=== PATIENT | male | born 1945 | race Caucasian/White ===

== ENCOUNTER 2019-04-20 12:55 | Emergency (ER) | payer OTHER, MEDICARE ==
[~2019-04-20] VITALS: Ht 182.9 cm; Wt 99.8 kg
[2019-04-20] MEDS ORDERED: LIPITOR10 MG PO (13:19)
[2019-04-20] MEDS ORDERED: LISINOPRIL10 MG PO (13:19)
[2019-04-20] MEDS ORDERED: GLIPIZIDE ER2.5 MG PO (13:20)
[2019-04-20] MEDS ORDERED: XARELTO1 EACH PO (13:21)
[2019-04-20 15:00] LABS: ABSOLUTE NEUTROPHILS 4.6 thou/uL (1.4-8.2); BASOPHILS 0.5 % (0.0-2.0); EOSINOPHILS 1.8 % (0.0-3.0); HEMATOCRIT 44.1 % (42.0-52.0); HEMOGLOBIN 15.1 gm/dL (14.0-18.0); LYMPHOCYTES 32.3 % (24.0-44.0); MCH 31.9 pg (26.0-34.0); MCHC 34.3 g/dL (28.0-37.0); MCV 92.9 fL (80.0-100.0); PLATELET COUNT 282 thou/uL (150-400); POLYS 57.4 % (36.0-66.0); RBC 4.75 mil/uL (4.50-6.00); RDW 13.1 % (10.5-14.5)
[2019-04-20 15:08] LABS: CALCIUM 9.5 mg/dL (8.5-10.1); CREATININE 1.4 mg/dL (0.7-1.3); POTASSIUM 4.2 mmol/L (3.5-5.1)
[2019-04-20] MEDS ORDERED: BACTRIM DS TAB1 EACH PO ×5 (15:52→15:55)
[2019-04-20] MEDS ORDERED: NORCO 5-325 TA1 EACH PO ×5 (15:53→15:55)
[2019-04-20 16:15] VITALS: BP 154/117
== END 2019-04-20 16:10 | disposition home or self-care (01) ==
LOC: ER 12:55
PROVIDERS: Nurse Practitioner Family
DX: S80.261A Insect bite (nonvenomous), right knee, initial encounter (principal); L02.415 Cutaneous abscess of right lower limb; I10 Essential (primary) hypertension; E78.5 Hyperlipidemia, unspecified; W57.XXXA Bitten or stung by nonvenomous insect and other nonvenomous arthropods, initial encounter; Y93.89 Activity, other specified; Y92.89 Other specified places as the place of occurrence of the external cause; Y99.8 Other external cause status

== ENCOUNTER → 2019-04-24 | Outpatient (CLI) | payer OTHER, MEDICARE ==
[~2019-04-24] MED LIST: BACTRIM DS TAB1 EACH PO; GLIPIZIDE ER2.5 MG PO; LIPITOR10 MG PO; LISINOPRIL10 MG PO; NORCO 5-325 TA1 EACH PO; XARELTO1 EACH PO
== END ==
LOC: HYPER 04-21 08:15
DX: S80.261A Insect bite (nonvenomous), right knee, initial encounter (principal); I10 Essential (primary) hypertension; E11.9 Type 2 diabetes mellitus without complications; E78.5 Hyperlipidemia, unspecified; R60.0 Localized edema; T63.301A Toxic effect of unspecified spider venom, accidental (unintentional), initial encounter; Y93.89 Activity, other specified; Y92.89 Other specified places as the place of occurrence of the external cause; Y99.8 Other external cause status; Z79.84 Long term (current) use of oral hypoglycemic drugs; Z79.01 Long term (current) use of anticoagulants

== ENCOUNTER → 2019-05-08 | Outpatient (CLI) | payer OTHER, MEDICARE | LOC: HYPER 07:08 | DX: E11.622 Type 2 diabetes mellitus with other skin ulcer (principal); L97.812 Non-pressure chronic ulcer of other part of right lower leg with fat layer exposed; T63.331D Toxic effect of venom of brown recluse spider, accidental (unintentional), subsequent encounter; R60.0 Localized edema; I10 Essential (primary) hypertension; E78.5 Hyperlipidemia, unspecified; Z79.84 Long term (current) use of oral hypoglycemic drugs; Z79.01 Long term (current) use of anticoagulants ==